=== PATIENT | female | born 1965 | race Caucasian/White ===

== ENCOUNTER 2021-09-11 16:44 | Emergency (ER) | payer BC, SELFPAY ==
--- NOTE | ~2021-09-11 | CT_ITS ---
EXAMINATION: CT brain wo con DATE: 09/11/2021 17:44 INDICATION: Fall with head injury TECHNIQUE: Computed tomography (CT) of the head was performed without intravenous contrast. Sagittal and coronal reconstructions were performed. The mA was adjusted according to patient size. Iterative reconstruction technique was employed. The dose-length product was 605.33 mGy-cm. COMPARISON: None FINDINGS: Small left frontal scalp hematoma. No fracture. No acute intracranial hemorrhage, acute infarction or abnormal extra axial fluid collection. Ventricles are normal and symmetric. No mass/mass effect. Mil d mucosal thickening the posterior left ethmoid sinus. The orbits and mastoid air cells are normal. IMPRESSION: 1. Normal brain. No fracture or acute intracranial process. Reviewed, dictated and finalized at location A.
[2021-09-11 16:45] VITALS: BP 162/100; PULSE 100; RESP 18; TEMP 36.6; O2SAT 100
--- NOTE | 2021-09-11 17:01 | ED.HEATRA ---
HPI - Head Injury General Chief complaint: Head Injury Stated complaint: fall/head lump Time Seen by Provider: 09/11/21 17:00 Source: patient Mode of arrival: ambulatory Limitations: no limitations History of Present Illness HPI Narrative: Patient is a 55-year-old with a history of hypertension, type 2 diabetes, presenting to the emergency department for evaluation of ground-level fall, head trauma. Patient reports that she tripped while taking out her trash, causing her to fall over the trash can and hit her head on the ground. Patient reports her forehead struck the ground but denies loss of consciousness patient denies vision changes, nausea, vomiting, neck pain. She does report soreness in her shoulders but denies specific shoulder or arm pain. She denies any difficulty with speech, facial droop, difficulty with ambulation. She denies dizziness. No prodromal symptoms prior to the fall such as chest pain, lightheadedness, shortness of breath, palpitation patient takes a daily aspirin. Patient states that she initiated that medication at the start of Covid, does not take that for any other formal diagnosis. Patient denies any lower back pain. Denies hip pain or extremity pain. Patient states she does have some bruising to the right lower leg. She was ambulatory following the fall. Related Data Allergies Allergy/AdvReac Type Severity Reaction Status Date / Time No Known Drug Allergies Allergy Unknown Unknown Verified 09/11/21 16:45 Review of Systems Review of Systems: CONSTITUTIONAL: Denies fever, chills, or sweats. EYES: Denies visual changes, redness, or discharge. ENT: Denies rhinorrhea, congestion, sore throat, or otalgia. CARDIOVASCULAR: Denies chest pain, palpitations, or edema. RESPIRATORY: Denies cough or dyspnea. GASTROINTESTINAL: Denies abdominal pain, nausea, vomiting, or diarrhea. GENITOURINARY: Denies dysuria or hematuria. SKIN: Denies rash or itching. MUSCULOSKELETAL: Denies back pain, joint pain, or myalgia. NEUROLOGIC: Reports dull, mild headache overlying the hematoma, denies neck pain, denies focal weakness or numbness [facility] Social History Social History (Updated 09/11/21 @ 17:19 by Sandra Haddad MD) Smoking status: Never smoker Alcohol intake: current Alcohol use details: seldom Substance use: never Living arrangements: with family Gender identity (if verbalized by the patient): Female Exam Narrative: Nursing note and vitals reviewed. CONSTITUTIONAL: The patient appears well-developed and well-nourished. No distress. HEAD: Normocephalic, frontal hematoma left forehead, nonboggy, no ecchymosis EYES: 2+ PERRL, EOMI, no gaze palsy, normal conjunctiva, anicteric EARS: External ears clear bilaterally, no hemotympanum MOUTH: OP clear, no erythema, exudates NECK: midline trachea, supple, FROM. No midline cervical spinal tenderness. CARDIOVASCULAR: Normal rate, regular rhythm, normal heart sounds and intact distal pulses. No murmurs, rubs, gallops. PULMONARY: Effort normal and breath sounds normal. No respiratory distress. The patient has no wheezes, rales, ronchi. No chest wall tenderness, crepitus or ecchymoses. ABDOMINAL: Soft. Nontender, nondistended. No palpable masses EXTREMITIES:: moving all extremities symmetrically. -RUE: No deformity. Normal ROM at shoulder, elbow, wrist, and hand. Sensation intact M/U/R. Pulse 2+. -LUE: No deformity. Normal ROM at shoulder, elbow, wrist, and hand., Sensation intact M/U/R. Pulse 2+ -RLE: No deformity. Normal ROM at hip, knee, ankle. Sensation intact distally. -LLE: No deformity. Normal ROM at hip, knee, ankle. Sensation intact distally. NEUROLOGY: The patient is alert and oriented to person, place, and time. CN II-XII. Finger to nose intact bilaterally. EOMs intact without nystagmus. No facial droop/asymmetry noted bilaterally. Grimace intact. Intact sensation in face. Hearing intact bilaterally. Shoulder shrug intact. Strength 5/5 bilateral upper
[2021-09-11 18:27] VITALS: BP 153/91; PULSE 97; RESP 18; O2SAT 97
== END 2021-09-11 18:28 | disposition home or self-care (01) ==
PROVIDERS: Emergency Provider Emergency Medicine; PCP Family Medicine
DX: S00.83XA Contusion of other part of head, initial encounter (principal); W01.0XXA Fall on same level from slipping, tripping and stumbling without subsequent striking against object, initial encounter
CPT/HCPCS: 70450; 99284

== ENCOUNTER 2022-07-18 10:29 | Inpatient (IN) | payer BC, SELFPAY ==
[2022-07-18] VITALS (22 sets, daily range): BP systolic 138–193; BP diastolic 57–86; PULSE 70–95; RESP 13–23; TEMP 36.4–37; O2SAT 95–100; BMI 42.5
--- NOTE | ~2022-07-18 | CT_ITS ---
CT Abdomen and Pelvis with contrast. History: Epigastric pain. Spiral CT of the abdomen and pelvis was performed after the administration of intravenous contrast. 1 00 cc of Omnipaque 350 was administered intravenously without complication. Dose reduction technique was used on this scan by utilizing automated exposure control and iterative reconstruction technique. The dose-length product (DLP) was 1422.78 mGy-cm. Findings: Scans through the lung bases demonstrate mild atelectatic change. The liver, spleen, pancreas, adrenals and kidneys are within normal limits. Probable gallstones prese nt. No evidence of aortic aneurysm. No lymphadenopathy is seen. There is no evidence of bowel obstruction. There is no evidence to suggest acute appendicitis or dive rticulitis. Images through the pelvis were performed. Urinary bladder unremarkable. No adnexal mass seen. No asci jermaine. No ascites is seen. Lumbar fusion across the L5-S1 disc space present, with underlying probable chronic L5 pars interarticularis defects. Impression: Cholelithiasis. Reviewed, dictated and finalized at location . OTIST OR PROSTHETIST Impression: Cholelithiasis.
--- NOTE | ~2022-07-18 | US_ITS ---
US abdomen limited DATE: 07/18/2022 14:27 INDICATION: Epigastric abdominal pain. Gallstones. TECHNIQUE: Real-time imaging of liver, pancreas, gallbladder COMPARISON: 07/18/2022 CT abdomen pelvis FINDINGS: No hepatic or pancreatic space-occupying mass lesion is evident. Normal hepatopedal portal venous flow direction. No bile duct or pancreatic duct dilatation. The common bile duct measures 3.8 mm diameter, normal. There is an approximately 2.9 cm filling defect of the neck of the gallbladder. There is prominent co arlene flow signal at the filling defect. There is some posterior shadowing. This is thought most likely to be a gallstone with some artifactual color flow signal. However, there is a remote chance that th is might be a solid vascular mass. Gallbladder carcinoma is not definitively excluded. MR abdomen todd ging is recommended for confident diagnosis. There is mild gallbladder wall thickening. Consider acute or chronic cholecystitis. IMPRESSION: Equivocal finding at the gallbladder neck. Probable large gallstone versus much less like ly solid vascular mass. Recommend MR abdomen imaging for confident differentiation Reviewed, dictated and finalized at Location A. Reviewed, dictated and finalized at location L. CTOR NON PROFIT IMPRESSION: Equivocal finding at the gallbladder neck. Probable large gallstone versus much less likely solid vascular mass. Recommend MR abdomen imaging for confident differentiation
--- NOTE | ~2022-07-18 | CT_ITS ---
EXAMINATION: CT brain wo con DATE: 07/18/2022 11:38 INDICATION: Headache and hypertension TECHNIQUE: Computed tomography (CT) of the head was performed without intravenous contrast. Sagittal and coronal reconstructions were performed. The mA was adjusted according to patient size. Iterative reconstruction technique was employed. The dose-length product was 605.33 mGy-cm. COMPARISON: head CT dated 09/11/21 FINDINGS: No acute intracranial hemorrhage, acute infarction or abnormal extra axial fluid collection. There is minimal scattered white matter hypoattenuation consistent with chronic small vessel ischemic disease . Ventricles are normal and symmetric. No mass/mass effect. Mild mucosal thickening in the posterior left ethmoid sinus. The orbits and mastoid air cells are normal. IMPRESSION: 1. No acute intracranial process. Reviewed, dictated and finalized at location A. MAKER
--- NOTE | ~2022-07-18 | MR_ITS ---
EXAMINATION: MR MRCP wo/w con/w 3D wo ind DATE: 07/19/2022 08:41 INDICATION: Epigastric pain. Gallstone at the neck of the gallbladder TECHNIQUE: Magnetic resonance imaging (MRI) of the abdomen was performed without and with 20 mL Multi armen intravenous contrast. Sequences included coronal T2-weighted SS-FSE, coronal T2-weighted FS SS- FSE, coronal T2-weighted FS FIESTA, axial T2-weighted FS FIESTA, axial T2-weighted FIESTA, sagittal T 2-weighted SS-FSE, axial T1-weighted dual-echo FSPGR, axial T2-weighted SS-FSE, axial T1-weighted LAV A, axial T2-weighted STIR FSE. Thick-slab T2-weighted FRFSE-XL images were obtained for magnetic reso nance cholangiopancreatography (MRCP). Rotating maximum intensity projection 3-D reconstructions of t he volumetric data were created by the technologist. Postcontrast sequences included a time course of axial T1-weighted LAVA. COMPARISON: CT and ultrasound dated 07/18/1932 FINDINGS: ABDOMEN MRI: Heart size is normal. Mild atelectasis at the lung bases. No pericardial or pleural effusion. Liver, pancreas, spleen, bilateral adrenal glands and kidneys are normal. A couple gallstones with absent si gnal, the larger measuring 2.5 cm at the neck of the gallbladder. There is edematous wall thickening of the gallbladder measuring up to 4 mm in thickness and there is no pericholecystic inflammatory str anding which suggests early acute cholecystitis. Visualized portion of the bowels are unremarkable. N o pathologically enlarged abdominal lymphadenopathy. Metallic magnetic field artifact corresponding t o the consultation for a combined anterior and posterior spinal fusion at L5-S1 better appreciated on prior CT. ABDOMEN MRCP: Common bile duct is normal in caliber measuring up to 5 mm in maximal diameter tapering smoothly dist ally with no evident choledocholithiasis. No dilation of the intrahepatic biliary tree or main pancre atic duct. IMPRESSION: 1. Cholelithiasis with some edematous-appearing gallbladder wall thickening but without pericholecyst ic inflammatory stranding which suggests early acute cholecystitis. 2. No choledocholithiasis or biliary ductal dilation. Reviewed, dictated and finalized at location A. H ACCOMMODATION SUPPORT WORKER IMPRESSION: 1. Cholelithiasis with some edematous-appearing gallbladder wall thickening but without pericholecystic inflammatory stranding which suggests early acute chol ecystitis. 2. No choledocholithiasis or biliary ductal dilation.
--- NOTE | ~2022-07-18 | XR_ITS ---
Clinical Indication: Lightheadedness, hypertension PA and lateral views of the chest: Comparison: 06/18/2016 Findings: The lungs are clear, without evidence of focal consolidation or pleural effusion. Cardiome diastinal silhouette is within normal limits. Bones and soft tissues are unremarkable. Impression: Normal chest. Reviewed, dictated and finalized at location . TAMP OPERATOR Impression: Normal chest.
--- NOTE | 2022-07-18 10:41 | ECG_ITS ---
Measurements Intervals [place] Rate: 67 P: 66 MN: 151 QRS: 6 QRSD: 90 T: 47 QT: 391 QTc: 416 Interpretive Statements SINUS RHYTHM VENTRICULAR PREMATURE COMPLEXES DELAYED PRECORDIAL R/S TRANSITION BORDERLINE ECG NO PREVIOUS ECG AVAILABLE FOR COMPARISON Electronically Signed On 07-18-2022 11:23:24 PLASTIC DIE MAKER APPRENTICE by Ar Sosa D.O.
--- NOTE | 2022-07-18 11:24 | ED.ABDPAIN ---
HPI - Abdominal Pain General Chief Complaint: Abdominal Pain Stated Complaint: upper abdominal pain, light headed Time Seen by Provider: 07/18/22 10:41 Source: patient Mode of arrival: ambulatory Limitations: no limitations History of Present Illness HPI narrative: This is a 56 year old female that presents to the ER with multiple complaints. Reports cold symptoms ongoing over the last week. Reports sinus pain, otalgia, mild cough. She did have a COVID test which was negative. Reports what mostly brought her in today though was abdominal pain. Reports since last night she has had aching epigastric pain. She did have roast beef and mashed potatoes last night for dinner. She does have history of GERD, has taken her omeprazole with little relief. Does report some nausea and vomiting. Reports a mild headache. Noted to be hypertensive upon arrival. She does report she took her blood pressure medication this morning. Denies fever, chest pain, shortness of breath, numbness, or weakness. Related Data Home Medications Medication Instructions Recorded Confirmed amlodipine 5 mg-benazepril 40 mg 40 cap PO DAILY 07/18/22 07/18/22 capsule aspirin 81 mg tablet 81 mg PO DAILY 07/18/22 07/18/22 cholecalciferol (vitamin D3) 25 25 mcg PO DAILY 07/18/22 07/18/22 mcg (1,000 unit) tablet glipizide 5 mg tablet, extended 10 mg PO BID 07/18/22 07/18/22 release 24 hr metformin 500 mg tablet 1,000 mg BID 07/18/22 07/18/22 metoprolol succinate 25 mg 25 mg PO DAILY 07/18/22 07/18/22 tablet,extended release 24 hr omeprazole 40 mg capsule,delayed 40 mg PO DAILY 07/18/22 07/18/22 release semaglutide 1 mg/dose (4 mg/3 mL) 1 mg subcut WEEKLY 07/18/22 07/18/22 subcutaneous pen injector (Ozempic) Allergies Allergy/AdvReac Type Severity Reaction Status Date / Time No Known Drug Allergies Allergy Unknown Unknown Verified 07/18/22 18:49 Review of Systems Review of Systems: CONSTITUTIONAL: Denies fever EYES: Denies visual changes ENT: Reports congestion, sore throat, and otalgia. CARDIOVASCULAR: Reports palpitations. Denies chest pain, or edema. RESPIRATORY: Reports cough. Denies dyspnea. GASTROINTESTINAL: Reports abdominal pain, nausea and vomiting. Denies diarrhea. GENITOURINARY: Denies dysuria NEUROLOGIC: Reports headache. Denies numbness, or weakness. All systems reviewed & are unremarkable except as noted in HPI and below PMFSH Past Medical History Medical History Hypertension Type 2 diabetes mellitus Surgical History Surgical History History of hysterectomy History of lumbar fusion L5-S1 Family History Family History Other Acute myocardial infarction Diabetes mellitus Heart disease Hypertension Social History Social History Social History: Surrogate medical decision maker: Glenolvin Finley, spouse. Code status: Full code. Smoking status: Never smoker Alcohol intake: unknown Alcohol use details: Seldom. Substance use: unknown Lack of Transportation: No Lack of Food: Never True Current Housing: I Have Housing Concerned About Future Housing: No Difficulty Paying Gas/Electric Bills: No Difficulty Paying for Meds: No Currently Unemployed: No Education: Don't Know Difficulty w/ Childcare or Family Care: No Additional living arrangements comments: Lives with family in [place]. Additional occupation/education comments: Retiring from [employer] this Sunday. Spiritual care concerns: No Exam Narrative: GENERAL: Well-appearing, well-nourished, and in no acute distress. HEAD: Normocephalic, atraumatic. EYES: PERRLA and EOMI. ENT: Nares clear, no rhinorrhea or epistaxis. Mucous membranes moist. Oropharynx without tonsillar hypertrophy exudate or other lesions
[2022-07-18 11:40] LABS: Basophils Absolute Auto 0.1 K/mm3 (0.0-0.1); Basophils Percent Auto 0.7 % (0.2-1.2); Eosinophils Absolute Auto 0.1 K/mm3 (0-0.3); Hematocrit 40.4 % (37.0-47.0); Hemoglobin 12.8 g/dL (12.0-15.0); Immature Granulocyte Absolute 0.04 K/mm3 (0.00-0.031); Immature Granulocyte Percent A 0.4 % (0-0.5); Lymphocytes Absolute Auto 2.28 K/mm3 (0.9-3.2); Lymphocytes Percent Auto 22.5 % (18.3-44.2); Mean Corpuscular HGB Conc 31.7 g/dl (32-36); Mean Corpuscular Hemoglobin 26.8 pg (26-34); Mean Corpuscular Volume 84.5 fl (80-100); Mean Platelet Volume 9.5 fl (7.4-10.4); Monocytes Absolute Auto 0.5 K/mm3 (0.1-0.6); Monocytes Percent Auto 4.8 % (2.6-8.5); Neutrophils Absolute Auto 7.1 K/mm3 (1.3-6.7); Neutrophils Percent Auto 70.6 % (45.5-73.1); Platelet Count Result 347 k/mm3 (150-375); Red Blood Count 4.78 M/mm3 (4.2-5.4); Red Cell Distribution Width 14.6 % (11.5-14.5); White Blood Count 10.1 K/mm3 (4.5-10.0)
[2022-07-18 11:50] LABS: Alanine Aminotransferase 46 U/L (6-35); Albumin Level 4.6 g/dL (3.5-5.1); Alkaline Phosphatase 113 U/L (38-126); Anion Gap 6 mmol/L (8-16); Aspartate Amino Transferase 39 U/L (14-36); Bilirubin,Total 0.4 mg/dL (0.2-1.3); Blood Urea Nitrogen 17 mg/dL (7-17); Calcium 9.9 mg/dL (8.4-10.2); Carbon Dioxide 28 mmol/L (22-30); Chloride 101 mmol/L (98-107); Estimated CRCL calculation 92 ml/min; Estimated Glomerular Filt Rate > 60; Glucose 180 mg/dL (65-110); Lipase 162 U/L (23-300); Potassium 4.2 mmol/L (3.4-5.0); Sodium 135 mmol/L (137-145)
[2022-07-18] MEDS: ONDANSETRON INJ 4 MG/2 ML VIAL IV PUSH (11:52)
[2022-07-18] MEDS: FAMOTIDINE 20 MG/2 ML VIAL IV PUSH (11:53)
--- NOTE | 2022-07-18 12:02 | PC.NURSE ---
Patient stated that she had a hysterectomy
[2022-07-18 12:06] LABS: Appearance Urine Clear (Clear); Bilirubin Urine Negative (Negative); Blood Urine Negative (Negative); Color Urine Yellow (Yellow); Glucose Urine UA Negative (Negative); Ketones Urine Negative (Negative); Leukocyte Esterase Ur Negative LEU/UL (Negative); Nitrate Urine Negative (Negative); Protein Urine 2+ mg/dL (Negative); Specific Grav Ur 1.025 (1.001-1.035); Urobilinogen Urine 0.2 mg/dL (<2.0); pH Urine 5.5 (5.0-9.0)
[2022-07-18 12:11] LABS: Mucus Urine Rare /lpf; RBC Urine 0-2 /hpf (0-2); Squamous Epithelial Cell Urine Few /hpf (Few); WBC Urine 0-3 /hpf
[2022-07-18 12:12] LABS: Add Urine Microscopic? YES
[2022-07-18 12:32] LABS: Influenza A QL RT-PCR Negative (Negative); Influenza B QL RT-PCR Negative (Negative); SARS-CoV-2 RNA PCR Negative
[2022-07-18] MEDS: METOCLOPRAMIDE HCL INJ 10 MG/2 ML VIAL IV PUSH (14:19)
[2022-07-18] MEDS: diphenhydrAMINE HCl INJ 50 MG/ML VIAL 25 MG IV PUSH (14:19)
[2022-07-18] MEDS: MORPHINE SULFATE (*CRX) 4 MG/ML INJ IV PUSH (15:13)
--- NOTE | 2022-07-18 16:15 | PM.IMHP ---
H&P: HPI History of Present Illness Date/Time: 07/18/22 16:15 Chief Complaint: Abdominal pain. Narrative: This is a very pleasant 56-year-old female with hypertension and type 2 diabetes mellitus who presented to the ED for evaluation of abdominal pain. She and her family members were recently in [place] and returned about 10 days ago. Towards the end of their trip she developed some sinus congestion, headache, and ear pain and she was seen at urgent care once they got home where she tested negative for COVID and influenza. Her symptoms have improved though she still has some sinus congestion. Sometime last week after eating [place] food she had some discomfort in epigastric region though that passed expectantly. Last evening they had roast beef and mashed potatoes for dinner and within an hour or so she once again developed epigastric pain that she describes as a severe ache. The discomfort seemed to come and go in waves of intensity but was constant. She slept poorly due to the pain. Tums provided her with no significant relief. This morning she felt nauseated and had multiple episodes of emesis after presenting to the ED. she was afebrile on arrival. Labs were significant for a WBC count of 10.1, AST 39, ALT 49, lipase 162. CT of the abdomen pelvis showed cholelithiasis and probable gallstones. Right upper quadrant ultrasound showed equivocal findings at the gallbladder neck, probable large gallstone versus much less likely solid vascular mass. She is being admitted in this setting for pain control, surgery consultation, and abdominal MRI to further delineate these findings. At the time my evaluation she is feeling a bit better after receiving IV morphine and ondansetron. She denies fever, chills, sweats, hematemesis, and diarrhea. Review of Systems Review of Systems: Twelve systems were reviewed. She continues to have sinus congestion and pressure, into the teeth. The symptoms have been ongoing for a couple of weeks and she suspects that she has a sinus infection. Glucose has been running high the last 24 hours, unusual for her. States last A1c was 6.5%. [facility] Past Medical History Medical History (Updated 07/18/22 @ 23:03 by Stacy Gonzalez PA-C) Hypertension Type 2 diabetes mellitus Surgical History Surgical History (Updated 07/18/22 @ 23:01 by Stacy Gonzalez PA-C) History of hysterectomy History of lumbar fusion L5-S1 Family History Family History Other Acute myocardial infarction Diabetes mellitus Heart disease Hypertension Social History Social History (Updated 07/18/22 @ 23:01 by Stacy Gonzalez PA-C) Social History: Surrogate medical decision maker: Glen Finley, spouse. Code status: Full code. Smoking status: Never smoker Alcohol intake: unknown Alcohol use details: Seldom. Substance use: unknown Lack of Transportation: No Lack of Food: Never True Current Housing: I Have Housing Concerned About Future Housing: No Difficulty Paying Gas/Electric Bills: No Difficulty Paying for Meds: No Currently Unemployed: No Education: Don't Know Difficulty w/ Childcare or Family Care: No Additional living arrangements comments: Lives with family in [place]. Additional occupation/education comments: Retiring from [employer] this Sunday. Spiritual care concerns: No Meds Home Medications and Allergies Home Medications Medication Instructions Recorded Confirmed Type amlodipine 5 mg-benazepril 40 mg 40 cap PO DAILY 07/18/22 07/18/22 History capsule aspirin 81 mg tablet 81 mg PO DAILY 07/18/22 07/18/22 History cholecalciferol (vitamin D3) 25 25 mcg PO DAILY 07/18/22 07/18/22 History mcg (1,000 unit) tablet glipizide 5 mg tablet, extended 10 mg PO BID 07/18/22 07/18/22 History release 24 hr metformin 500 mg tablet 1,000 mg BID 07/18/22 07/18/22 History metoprolol succinate 25 mg 25 mg PO DAILY 0
[2022-07-18 17:30] LABS: Glucose Point of Care 200 mg/dl (65-105)
[2022-07-18] MEDS: HYDROmorphone HCL INJ (*CRX) 1 MG/ML SYR 0.5 MG IV PUSH (17:33)
--- NOTE | 2022-07-18 18:40 | ADMGEN ---
This patient, Kacie Finley, was admitted to 3 [facility] Surg Room 328-01. Patient/family oriented to hospital policies and general routines including ID bracelet, bed and alarms, visiting hours, pain management, procedures, bathroom and other care routines, personal items, smoking policy, room service/diet, and visiting hours. Information on how to activate the Rapid Response Team has been discussed. Patient/Family are encouraged to report perceived risks to care and to ask questions if they do not understand what they are told or what they should do. Report from Zachary.
[2022-07-18 23:33] LABS: Glucose Point of Care 174 mg/dl (65-105)
[2022-07-18] MEDS: HYDROcodone/acetaminophen (*CRX) 5-325 MG TABLET 1 TAB PO (23:41)
[2022-07-19] VITALS (10 sets, daily range): BP systolic 120–166; BP diastolic 61–78; PULSE 68–99; RESP 15–20; TEMP 36.1–36.5; O2SAT 93–97
[2022-07-19] MEDS: AZITHROMYCIN 250 MG TABLET 500 MG PO (00:07)
[2022-07-19] MEDS: HYDROmorphone HCL INJ (*CRX) 1 MG/ML SYR 0.5 MG IV PUSH ×3 (02:59→12:08)
[2022-07-19 04:49] LABS: Glucose Point of Care 176 mg/dl (65-105)
[2022-07-19 06:24] LABS: Hematocrit 39.4 % (37.0-47.0); Hemoglobin 12.9 g/dL (12.0-15.0); Mean Corpuscular HGB Conc 32.7 g/dl (32-36); Mean Corpuscular Hemoglobin 26.8 pg (26-34); Mean Corpuscular Volume 81.9 fl (80-100); Mean Platelet Volume 9.5 fl (7.4-10.4); Platelet Count Result 363 k/mm3 (150-375); Red Blood Count 4.81 M/mm3 (4.2-5.4); Red Cell Distribution Width 14.1 % (11.5-14.5)
[2022-07-19 06:33] LABS: Alanine Aminotransferase 40 U/L (6-35); Albumin Level 4.5 g/dL (3.5-5.1); Alkaline Phosphatase 104 U/L (38-126); Anion Gap 8 mmol/L (8-16); Aspartate Amino Transferase 32 U/L (14-36); Bilirubin,Total 0.5 mg/dL (0.2-1.3); Blood Urea Nitrogen 15 mg/dL (7-17); Calcium 9.4 mg/dL (8.4-10.2); Carbon Dioxide 26 mmol/L (22-30); Chloride 99 mmol/L (98-107); Estimated CRCL calculation 94 ml/min; Estimated Glomerular Filt Rate > 60; Glucose 171 mg/dL (65-110); Lipase 58 U/L (23-300); Magnesium 1.8 mg/dL (1.6-2.3); Sodium 133 mmol/L (137-145)
[2022-07-19] MEDS: lisinopriL 20 MG TABLET 40 MG PO (08:58)
[2022-07-19] MEDS: PANTOPRAZOLE 40 MG TABLET PO (08:58)
[2022-07-19] MEDS: METOPROLOL SUCCINATE EXT REL 25 MG TABCR PO (08:58)
[2022-07-19] MEDS: amLODIPine BESYLATE 5 MG TABLET PO (08:58)
[2022-07-19] MEDS: CHOLECALCIFEROL 1,000 UNITS TABLET 1000 UNITS PO (08:58)
--- NOTE | 2022-07-19 10:30 | PM.CNGS ---
Assessment and Plan Assessment and plan (1) Acute calculous cholecystitis: Code(s): K80.00 - Calculus of gallbladder with acute cholecystitis without obstruction Status: Acute Assessment and Plan: All imaging reviewed and discussed with the patient in detail. MRCP confirmed that what was noted in the neck of the gallbladder on the ultrasound is a large gallstone, also with wall thickening of the gallbladder. She continues to have abdominal pain this morning with vomiting after sips of water with her oral pills. Given her persistent abdominal pain and large stone, it is unlikely she would be able to tolerate trying dietary modifications and going home. We would recommend proceeding with a laparoscopic cholecystectomy, possible open, under general anesthesia by Dr. Webb. Description of the procedure, risks, benefits, expected outcomes, and expected recovery were discussed with the patient and her . All questions were answered. She agrees to proceed with surgery. Will start IV fluids and add IV Zofran for her nausea. I will also keep her NPO for now until we confirm timing of surgery. We will order pre-operative antibiotics once surgery is scheduled. Dr. Webb will coordinate with the OR to try adding her onto the surgery schedule. (2) Type 2 diabetes mellitus: Code(s): E11.9 - Type 2 diabetes mellitus without complications Status: Acute Assessment and Plan: Management per Hospitalist. Hgb A1C pending this morning. (3) Hypertension: Qualifiers: Hypertension type: unspecified Qualified Code(s): I10 - Essential (primary) hypertension Code(s): I10 - Essential (primary) hypertension Status: Acute (4) Obesity, morbid, BMI 40.0-49.9: Code(s): E66.01 - Morbid (severe) obesity due to excess calories Status: Acute Assessment and Plan: Encouraged to continue low fat/diabetic diet once discharged. Patient and have requested a dietitian consult for education and examples for meal plans. Plan I have discussed the patient's case and plan of care with Dr. Webb. Thank you for allowing us to see the patient in consultation and we will continue to follow along with you. History of Present Illness Consult details Consult date: 07/19/22 Reason for consult: gallstones Requesting physician: Tiara Irene PA-C Narrative: This is a 56-year-old woman with a history of type 2 diabetes mellitus and hypertension, who presented to the emergency department yesterday with complaints of epigastric abdominal pain for 2 days. She reports an onset of epigastric abdominal pain about 2 hours after eating dinner. She had pot roast with gravy, potatoes, carrots, and ice cream with apple pie for dessert. She reports the epigastric abdominal pain radiates across her entire upper abdomen. Her pain was constant throughout the night and made it difficult to sleep. This abdominal pain continued to worsen yesterday and she decided to present to the ER for further evaluation. In the ER, she did begin vomiting. Her labs showed a white blood cell count 10,100, LFTs essentially normal, and a normal lipase. CT scan of the abdomen and pelvis showed probable cholelithiasis. She subsequently had a right upper quadrant abdominal ultrasound that showed mild gallbladder wall thickening with a probable large gallstone versus much less likely solid vascular mass at the neck of the gallbladder. Recommended MR abdominal imaging to further evaluate. Our service was consulted by the ED provider for biliary colic and abnormal gallbladder findings on imaging. An MRCP was ordered and has already been done this morning. This showed cholelithiasis with some edematous appearing gallbladder wall thickening, but no pericholecystic inflammatory stranding, no choledocholithiasis or biliary duct dilatation. There was noted to be a 2.5 cm gallstone at the neck of the gallbladder. The patient is insisting medi
[2022-07-19 11:35] LABS: Glucose Point of Care 169 mg/dl (65-105)
[2022-07-19] MEDS: SODIUM CHLORIDE 0.9% IV 1,000 ML 125 ML IV CONT (12:06)
--- NOTE | 2022-07-19 14:43 | WPDHPUPDATE1 ---
History and Physical Update Update Date/Time: 07/19/22 14:43 History and Physical has been reviewed, including an updated exam of the patient. There are NO changes in the patient's condition. Risks, benefits, and alternatives have been discussed and questions answered. Patient agrees to proceed with procedure.
--- NOTE | 2022-07-19 15:09 | WPDANESEPPF ---
Anes - Initial Pre Proc Eval Procedure: Operation Date: 07/19/22 16:30 Proposed Procedures p Laparoscopic Cholecystectomy; Possible Open - Geronimo Webb DO Date/Time: 07/19/22 15:09 Surgeon: Concetta Vang DO Pre Op Diagnosis: Biliary Colic Patient Data Age: 56 Gender: F Height: 1.63 m Weight: 112.3 kg Last Vital Signs Temp 36.1 C L 07/19/22 05:02 Pulse 72 07/19/22 08:58 Resp 16 07/19/22 05:02 BP 158/62 H 07/19/22 05:02 Pulse Ox 93 07/19/22 05:02 O2 Del Method Room Air 07/19/22 08:45 Allergies Allergy/AdvReac Type Severity Reaction Status Date / Time No Known Drug Allergies Allergy Unknown Unknown Verified 07/18/22 18:49 Home Medications Medication Instructions Recorded Confirmed Type amlodipine 5 mg-benazepril 40 mg 40 cap PO DAILY 07/18/22 07/18/22 History capsule aspirin 81 mg tablet 81 mg PO DAILY 07/18/22 07/18/22 History cholecalciferol (vitamin D3) 25 25 mcg PO DAILY 07/18/22 07/18/22 History mcg (1,000 unit) tablet glipizide 5 mg tablet, extended 10 mg PO BID 07/18/22 07/18/22 History release 24 hr metformin 500 mg tablet 1,000 mg BID 07/18/22 07/18/22 History metoprolol succinate 25 mg 25 mg PO DAILY 07/18/22 07/18/22 History tablet,extended release 24 hr omeprazole 40 mg capsule,delayed 40 mg PO DAILY 07/18/22 07/18/22 History release semaglutide 1 mg/dose (4 mg/3 mL) 1 mg subcut WEEKLY 07/18/22 07/18/22 History subcutaneous pen injector (Ozempic) Laboratory Tests 07/18/22 07/18/22 07/19/22 17:28 23:29 04:45 WBC RBC Hgb Hct MCV MCH MCHC RDW Plt Count MPV Sodium Potassium Chloride Carbon Dioxide Anion Gap BUN Creatinine Estim Creat Clear Calc Estimated GFR Glucose POC Capillary Glucose 200 mg/dl H mg/dl 174 mg/dl H mg/dl 176 mg/dl H mg/dl (65-105) (65-105) (65-105) Hemoglobin A1c Calcium Magnesium Total Bilirubin AST ALT Alkaline Phosphatase Total Protein Albumin Lipase 07/19/22 07/19/22 07/19/22 06:07 06:07 06:07 WBC 14.0 K/mm3 H K/mm3 (4.5-10.0) RBC 4.81 M/mm3 M/mm3 (4.2-5.4) Hgb 12.9 g/dL g/dL (12.0-15.0) Hct 39.4 % % (37.0-47.0) MCV 81.9 fl fl (80-100) MCH 26.8 pg pg (26-34) MCHC 32.7 g/dl g/dl (32-36) RDW 14.1 % % (11.5-14.5) Plt Count 363 k/mm3 k/mm3 (150-375) MPV 9.5 fl fl (7.4-10.4) Sodium 133 mmol/L L mmol/L (137-145) Potassium 4.0 mmol/L mmol/L (3.4-5.0) Chloride 99 mmol/L mmol/L (98-107) Carbon Dioxide 26 mmol/L mmol/L (22-30) Anion Gap 8 mmol/L mmol/L (8-16) BUN 15 mg/dL mg/dL (7-17) Creatinine 0.70 mg/dL mg/dL (0.7-1.0) Estim Creat Clear Calc 94 ml/min ml/min Estimated GFR > 60 (59 - ) Glucose 171 mg/dL H mg/dL (65-110) POC Capillary Glucose Hemoglobin A1c Pending Calcium 9.4 mg/dL mg/dL (8.4-10.2) Magnesium 1.8 mg/dL mg/dL (1.6-2.3) Total Bilirubin 0.5 mg/dL mg/dL (0.2-1.3) AST 32 U/L U/L (14-36) ALT 40 U/L H U/L (6-35) Alkaline Phosphatase 104 U/L U/L (38-126) Total Protein 8.0 g/dL g/dL (6.3-8.2) Albumin 4.5 g/dL g/dL (3.5-5.1) Lipase 58 U/L U/L (23-300) 07/19/22 11:29 WBC RBC Hgb Hct MCV MCH MCHC RDW Plt Count MPV Sodium Potassium Chloride Carbon Dioxide Anion Ga
[2022-07-19] MEDS: LACTATED RINGERS 1,000 ML 30 ML IV CONT (15:32)
[2022-07-19] MEDS: ceFAZolin 2 GM/D5W 50 ML 2 GM/50 ML BAG IVPB (15:56)
[2022-07-19] MEDS: BUPIVACAINE/EPINEPHRINE 0.5% 30 ML VIAL INFILTRATE (16:45)
--- NOTE | 2022-07-19 16:54 | W.PM.PROC2 ---
Procedure Note - Detailed Date of Procedure 07/19/22 Pre-op Diagnosis Acute calculous cholecystitis Post-op Diagnosis Same (Gallbladder hydrops) Procedure Performed Laparoscopic Cholecystectomy Surgeon Geronimo Webb, DO Anesthesia General and Local (0.5% bupivacaine) Indications This is a 56-year-old woman who presented to the emergency department with right upper quadrant pain that started 2 days ago. She has been having constant pain since it started. She denied any fevers or chills. She has never had symptoms like this the past. Her workup in the emergency department showed evidence of acute calculous cholecystitis. She was admitted for further treatment. Discussions were made with the patient about treatment options and decision was made to proceed with laparoscopic cholecystectomy, possible open. Findings Laparoscopic cholecystectomy was performed. The gallbladder had wall thickening and hyperemia. The gallbladder was tense and difficult to grasp, therefore it was aspirated with a laparoscopic aspirating needle and about 60 cc of clear mucus bile was aspirated. There were 2 large stones within the gallbladder. The cystic duct appeared to be normal size. The gallbladder was removed and sent to the lab for pathology. Description of Procedure Procedure as well as risks, benefits, and alternatives were discussed with patient. Written consent was obtained and placed in chart prior to procedure. The patient was brought back to surgical suite. Patient was placed in supine position on operating table. Time-out was done to confirm patient and procedure. Patient was then intubated by the anesthesia department. Abdomen was prepped and draped in sterile fashion using chlorhexidine prep. 0.5% bupivacaine with epinephrine was infiltrated at each site of incision. A 5 millimeter incision was made near the umbilicus, and a 5 millimeter Optiview trocar was advanced through the abdominal layers under direct visualization. Once inside the abdominal cavity, carbon dioxide was insufflated to create a pneumoperitoneum. The camera was inserted and the abdomen was inspected. No immediate abnormalities were identified. The patient was placed in reverse Trendelenburg position and rotated slightly to the left. An 11 millimeter incision was made in the subxiphoid region, and an 11 millimeter trocar was inserted under direct visualization. Two 5 millimeter incisions were made in the right upper quadrant, and two 5 millimeter trocars were inserted under direct visualization. The gallbladder was identified and grasped at the fundus and retracted superiorly. It was then grasped at the infundibulum retracted laterally. Careful dissection around the neck of the gallbladder was performed using blunt dissection with a [place] grasper and hook electrocautery. The cystic duct was identified, and a window was created behind it. The cystic artery was also identified and a window was created behind it. The critical view of safety was identified, visualizing the cystic duct running directly into the neck of the gallbladder, and the cystic artery running directly into the wall of the gallbladder. A 5 millimeter clip liquid fertilizer servicer was then used to place 2 clips proximally and 1 clip distally on both the cystic duct and cystic artery. They were then both transected using endoscopic scissors. Once safely away from the mariam hepatitis, the gallbladder was dissected free from the liver bed using hook electrocautery. Hemostasis was achieved along the way. The gallbladder was removed completely and then removed through the subxiphoid port. The liver bed was then inspected. Hemostasis appeared adequate, and our clips appeared secure. The area was gently irrigated with sterile saline. No other abnormalities were seen. The patient was flattened out in bed, and 1 final inspection was made around the abdominal cavity. The subxiphoid port was removed, and a Julian Sadia cone was used to
[2022-07-19 17:23] LABS: Glucose Point of Care 200 mg/dl (65-105)
--- NOTE | 2022-07-19 17:40 | PM.IMPN ---
Progress Note: A&P Assessment and Plan (1) Acute calculous cholecystitis: Code(s): K80.00 - Calculus of gallbladder with acute cholecystitis without obstruction Status: Acute Assessment and Plan: The patient presented to the ED for evaluation of epigastric and right upper quadrant abdominal pain and nausea and vomiting. CT shows cholelithiasis and right upper quadrant ultrasound showed what appears to be a gallstone at the gallbladder neck. Surgery consulted. MRCP showing cholelithiasis with some edematous GB. She underwent LapChol today. Continue routine post-op care. (2) Hypertension: Qualifiers: Hypertension type: unspecified Qualified Code(s): I10 - Essential (primary) hypertension Code(s): I10 - Essential (primary) hypertension Status: Acute Assessment and Plan: Patient's blood pressure was reviewed on 07/19 Blood pressure remains reasonably well controlled. Will continue current medications. (3) Type 2 diabetes mellitus: Code(s): E11.9 - Type 2 diabetes mellitus without complications Status: Acute Assessment and Plan: The patient's blood glucose was reviewed on 07/19 Glucose mild elevated Continue AccuCheks covering with sliding scale. Hypoglycemia protocol available as needed. Hold home meds (4) Sinusitis: Code(s): J32.9 - Chronic sinusitis, unspecified Status: Acute Assessment and Plan: Started on azithromycin for sinusitis but not appropriate empiric coverage. Will stop and follow. Subjective Date/time seen: 07/19/22 17:40 Interval history: 56yo female with DM and HTN here with abdominal pain. She is back form surgery this evening. Pain controlled. No CP or SOB. Feels much better overall since the surgery. Exam Narrative: Gen - NARD Chest - clear anteriorly. nml RR CV - RRR S1/S2 Abd - Soft, obese, +BS, incisions clean/dry and intact Ext - No pedal edema Psych - Nml mood and affect Skin - Warm and dry Objective Data Vital Signs Vital Signs: Vital Signs - 24 hr 07/18/22 18:14 07/18/22 18:03 07/18/22 21:38 Temperature 98.6 F 98.6 F 97.6 F Pulse Rate 85 80 Respiratory Rate 13 16 Blood Pressure 157/80 H 171/75 H Pulse Oximetry 98 95 Oxygen Delivery Oxygen Flow Rate 07/18/22 20:00 07/19/22 05:02 07/19/22 08:58 Temperature 97.0 F L Pulse Rate 72 72 Respiratory Rate 16 Blood Pressure 158/62 H Pulse Oximetry 93 Oxygen Delivery Room Air Oxygen Flow Rate 07/19/22 08:45 07/19/22 15:26 07/19/22 17:03 Temperature 97.7 F Pulse Rate 99 68 Respiratory Rate 16 15 Blood Pressure 148/78 H 120/61 Pulse Oximetry 97 97 Oxygen Delivery Room Air Room Air Simple Face Mask Oxygen Flow Rate 6 07/19/22 17:18 07/19/22 17:29 07/19/22 17:33 Temperature Pulse Rate 78 71 Respiratory Rate 16 18 Blood Pressure 145/73 H 144/69 H Pulse Oximetry 97 95 Oxygen Delivery Simple Face Mask Room Air Room Air Oxygen Flow Rate 6 Intake/Output Intake/Output: Intake & Output 07/16/22 07/17/22 07/18/22 07/19/22 23:59 23:59 23:59 23:59 Intake Total 100 50 Output Total 1500 Balance 100 -1450 Meds/Results Medications: Active Medications Generic Name Dose Route Start Last Admin Trade Name Freq PRN Reason Stop Dose Admin Acetaminophen 650 mg 07/18/22 23:07 Acetaminophen 325 Mg Tablet PO Q6H PRN Mild Pain (1-3) or Fever Hydrocodone Bitart/Acetaminophen 1 tab 07/18/22 23:07 07/18/22 23:41 Hydrocodone/Acetaminophen (*Crx) 5-325 Mg Tablet PO 1 tab Q6H PRN Administration Pain Rated 4-6 Amlodipine Besylate 5 mg 07/19/22 09:00 07/19/22 08:58 Amlodipine Besylate 5 Mg Tablet PO 5 mg QAM SUSAN Administration Azithromycin 250 mg 07/19/22 12:00 07/19/22 12:17 Azithromycin 250 Mg Tablet PO 07/22/22 09:01 Not Given DAILY SUSAN Dextrose 12.5 gm 07/18/22 17:24 Dextrose 50% 25 Gm/50 Ml Syringe IV
[2022-07-20 00:02] LABS: Glucose Point of Care 150 mg/dl (65-105)
[2022-07-20] MEDS: ACETAMINOPHEN 325 MG TABLET 650 MG PO (00:13)
[2022-07-20 05:34] LABS: Glucose Point of Care 158 mg/dl (65-105)
[2022-07-20] MEDS: HYDROcodone/acetaminophen (*CRX) 5-325 MG TABLET 1 TAB PO ×2 (05:36→11:08)
[2022-07-20 05:41] VITALS: BP 169/71; PULSE 87; RESP 16; TEMP 36.6; O2SAT 95
[2022-07-20 06:02] VITALS: BP 159/79
[2022-07-20 06:09] LABS: Hematocrit 37.9 % (37.0-47.0); Hemoglobin 12.2 g/dL (12.0-15.0); Mean Corpuscular HGB Conc 32.2 g/dl (32-36); Mean Corpuscular Hemoglobin 26.7 pg (26-34); Mean Corpuscular Volume 82.9 fl (80-100); Mean Platelet Volume 9.6 fl (7.4-10.4); Platelet Count Result 357 k/mm3 (150-375); Red Blood Count 4.57 M/mm3 (4.2-5.4); Red Cell Distribution Width 14.8 % (11.5-14.5); White Blood Count 12.4 K/mm3 (4.5-10.0)
--- NOTE | 2022-07-20 08:05 | WPDANESPN ---
Anes - Prog Note Post-Op Date/Time: 07/20/22 08:05 Vital Signs: Last Vital Signs Temp 36.6 C 07/20/22 05:41 Pulse 87 07/20/22 05:41 Resp 16 07/20/22 05:41 BP 159/79 H 07/20/22 06:02 Pulse Ox 95 07/20/22 05:41 O2 Del Method Room Air 07/19/22 20:00 O2 Flow Rate 6 07/19/22 17:18 Pain Score (VAS): 0 I/O: Intake & Output 07/19/22 07/20/22 07/20/22 23:59 07:59 15:59 Intake Total 150 Output Total 700 1900 Balance -550 -1900 Laboratory Tests 07/20/22 05:52 07/19/22 07/19/22 07/19/22 11:29 17:21 23:58 WBC RBC Hgb Hct MCV MCH MCHC RDW Plt Count MPV Sodium Potassium Chloride Carbon Dioxide Anion Gap BUN Creatinine Estim Creat Clear Calc Estimated GFR Glucose POC Capillary Glucose 169 H 200 H 150 H Calcium 07/20/22 07/20/22 07/20/22 05:27 05:52 05:52 WBC 12.4 H RBC 4.57 Hgb 12.2 Hct 37.9 MCV 82.9 MCH 26.7 MCHC 32.2 RDW 14.8 H Plt Count 357 MPV 9.6 Sodium Pending Potassium Pending Chloride Pending Carbon Dioxide Pending Anion Gap Pending BUN Pending Creatinine Pending Estim Creat Clear Calc Pending Estimated GFR Pending Glucose Pending POC Capillary Glucose 158 H Calcium Pending Patient Feedback: Patient satisfied with anesthetic care.
[2022-07-20] MEDS: ENOXAPARIN 40 MG/0.4 ML SYRINGE SUB-Q (08:57)
[2022-07-20 08:59] VITALS: PULSE 92
[2022-07-20] MEDS: lisinopriL 20 MG TABLET 40 MG PO (08:59)
[2022-07-20] MEDS: CHOLECALCIFEROL 1,000 UNITS TABLET 1000 UNITS PO (08:59)
[2022-07-20] MEDS: amLODIPine BESYLATE 5 MG TABLET PO (08:59)
[2022-07-20] MEDS: PANTOPRAZOLE 40 MG TABLET PO (08:59)
[2022-07-20] MEDS: METOPROLOL SUCCINATE EXT REL 25 MG TABCR PO (08:59)
[2022-07-20 10:47] LABS: Anion Gap 8 mmol/L (8-16); Blood Urea Nitrogen 14 mg/dL (7-17); Calcium 9.2 mg/dL (8.4-10.2); Carbon Dioxide 27 mmol/L (22-30); Chloride 103 mmol/L (98-107); Estimated CRCL calculation 83 ml/min; Estimated Glomerular Filt Rate > 60; Glucose 160 mg/dL (65-110); Sodium 138 mmol/L (137-145)
[2022-07-20 11:33] LABS: Glucose Point of Care 174 mg/dl (65-105)
--- NOTE | 2022-07-20 11:58 | PM.PNGS ---
Progress Note: A&P Assessment and Plan (1) Acute calculous cholecystitis: Code(s): K80.00 - Calculus of gallbladder with acute cholecystitis without obstruction Status: Acute Assessment and Plan: Doing well POD1. Pain well controlled. Tolerating a low fat diet. Okay from our standpoint to discharge the patient today. F/u with Dr. Webb in two weeks. Discussed d/c instructions with the patient. (2) Type 2 diabetes mellitus: Code(s): E11.9 - Type 2 diabetes mellitus without complications Status: Acute (3) Hypertension: Qualifiers: Hypertension type: unspecified Qualified Code(s): I10 - Essential (primary) hypertension Code(s): I10 - Essential (primary) hypertension Status: Acute (4) Obesity, morbid, BMI 40.0-49.9: Code(s): E66.01 - Morbid (severe) obesity due to excess calories Status: Acute Plan I have discussed the patient's case and plan of care with Dr. Webb. Subjective Subjective Date/Time Seen: 07/20/22 11:58 Post Op day: 1 (laparoscopic cholecystectomy) Patient reports: tolerating a regular diet, voiding w/o difficulty, no flatus, no bowel movement and afebrile Interval history: Patient seen this morning. Feeling well overall. Her abdominal pain from admission has resolved and now only complains of tenderness/soreness at the incisions. No nausea or vomiting and tolerating a low fat diet. Tolerating activity. Pain is well controlled with [place]. Review of Systems Review of Systems: All systems reviewed & are unremarkable except as noted in HPI and below Exam Const: General: comfortable, no acute distress and awake Orientation/consciousness: patient oriented x3 GI: Inspection: non-distended and incision (incisions dry and intact) GI Palp: Yes Soft to palpation, Yes Tenderness to palpation present (GI) (expected incisional tenderness), No Guarding due to palpation present (GI) and No Rebound tenderness present Auscultation: normal bowel sounds Neuro: General: moves all extremities and no focal motor deficits Extrem: General: no calf tenderness and no edema Psych: Mental Status: mental status grossly normal Insight: Good insight present (Psych) Objective Data Vital Signs Vital Signs: Vital Signs - 24 hr 07/19/22 15:26 07/19/22 17:03 07/19/22 17:18 Temperature 97.7 F Pulse Rate 99 68 78 Respiratory Rate 16 15 16 Blood Pressure 148/78 H 120/61 145/73 H Pulse Oximetry 97 97 97 Oxygen Delivery Room Air Simple Face Mask Simple Face Mask Oxygen Flow Rate 6 6 07/19/22 17:29 07/19/22 17:33 07/19/22 17:50 Temperature Pulse Rate 71 76 Respiratory Rate 18 18 Blood Pressure 144/69 H 148/70 H Pulse Oximetry 95 93 Oxygen Delivery Room Air Room Air Room Air Oxygen Flow Rate 07/19/22 17:58 07/19/22 18:14 07/19/22 22:18 Temperature 97.1 F L 97.2 F L Pulse Rate 71 68 91 Respiratory Rate 20 20 16 Blood Pressure 158/73 H 166/66 H 161/75 H Pulse Oximetry 94 95 97 Oxygen Delivery Room Air Oxygen Flow Rate 07/19/22 20:00 07/20/22 05:41 07/20/22 06:02 Temperature 97.8 F Pulse Rate 87 Respiratory Rate 16 Blood Pressure 169/71 H 159/79 H Pulse Oximetry 95 Oxygen Delivery Room Air Oxygen Flow Rate 07/20/22 08:59 Temperature Pulse Rate 92 Respiratory Rate Blood Pressure Pulse Oximetry Oxygen Delivery Oxygen Flow Rate Intake/Output Intake/Output: Intake & Output 07/17/22 07/18/22 07/19/22 07/20/22 23:59 23:59 23:59 23:59 Intake Total 100 150 330 Output Total 1800 1900 Balance 100 -1650 -1570 Meds/Results Medications: Active Medications Generic Name Dose Route Start Last Admin Trade Name Felipeq PRN Reason Stop Dose Admin Acetaminophen 650 mg 07/18/22 23:07 07/20/22 00:13 Acetaminophen 325 Mg Tablet PO 650 mg Q6H PRN Administration Mild Pain (1-3) or Fever Hydrocodone Bitart/Acetaminophen 1 tab 07/19/22 17:59 07/20/22 11:08
[2022-07-20 13:43] LABS: Hemoglobin A1C 6.3 % (<5.7)
[2022-07-20 14:00] VITALS: BP 123/66; PULSE 87; RESP 17; TEMP 36.1; O2SAT 97
--- NOTE | 2022-07-20 15:26 | PM.DS ---
DS: Admitting Diagnosis Discharge Date 07/20/22 Admitting Diagnosis Abdominal pain DS: Discharge Diagnosis Discharge Diagnosis (1) Acute calculous cholecystitis: Code(s): K80.00 - Calculus of gallbladder with acute cholecystitis without obstruction Status: Acute (2) Hypertension: Qualifiers: Hypertension type: unspecified Qualified Code(s): I10 - Essential (primary) hypertension Code(s): I10 - Essential (primary) hypertension Status: Acute (3) Type 2 diabetes mellitus: Code(s): E11.9 - Type 2 diabetes mellitus without complications Status: Acute (4) Sinusitis: Code(s): J32.9 - Chronic sinusitis, unspecified Status: Acute DS: Summary Hospital Course Reason for hospitalization: 56yo female with DM and HTN here with abdominal pain. Please see H&P for details Hospital Course: The patient presented to the ED for evaluation of epigastric and right upper quadrant abdominal pain with nausea and vomiting. CT shows cholelithiasis and right upper quadrant ultrasound showed what appears to be a gallstone at the gallbladder neck. Surgery was consulted. MRCP showing cholelithiasis with some edematous GB. She underwent laparoscopic cholecystectomy on 07/19/2022. She tolerated this procedure well. She still had postsurgical pain but her overall condition improved dramatically. She feels much better. She is here for discharge. Patient overall did well and was able be discharged home on 07/20/2022. Status at Discharge Cognitive/behavioral status at discharge: stable Time Spent with Patient Time attestation: Total time spent providing and/or coordinating discharge services: 34 minutes Time spent: Greater than 30 minutes Exam Narrative: Gen - NARD Chest - clear anteriorly. nml RR CV - RRR S1/S2 Abd - Soft, obese, +BS, incisions clean/dry and intact Ext - No pedal edema Psych - Nml mood and affect Skin - Warm and dry DS: Data Data Completed and Pending Pending studies at discharge: Pending at discharge 07/19/22 16:37 Surgical [PTH] Routine Labs on day of discharge: Labs from last 24 hours 07/20/22 07/20/22 07/20/22 11:30 06:16 05:52 WBC 12.4 H RBC 4.57 Hgb 12.2 Hct 37.9 MCV 82.9 MCH 26.7 MCHC 32.2 RDW 14.8 H Plt Count 357 MPV 9.6 Sodium 138 Potassium 4.0 Chloride 103 Carbon Dioxide 27 Anion Gap 8 BUN 14 Creatinine 0.80 Estim Creat Clear Calc 83 Estimated GFR > 60 Glucose 160 H POC Capillary Glucose 174 H Hemoglobin A1c Calcium 9.2 07/20/22 07/19/22 07/19/22 05:27 23:58 17:21 WBC RBC Hgb Hct MCV MCH MCHC RDW Plt Count MPV Sodium Potassium Chloride Carbon Dioxide Anion Gap BUN Creatinine Estim Creat Clear Calc Estimated GFR Glucose POC Capillary Glucose 158 H 150 H 200 H Hemoglobin A1c Calcium 07/19/22 06:07 WBC RBC Hgb Hct MCV MCH MCHC RDW Plt Count MPV Sodium Potassium Chloride Carbon Dioxide Anion Gap BUN Creatinine Estim Creat Clear Calc Estimated GFR Glucose POC Capillary Glucose Hemoglobin A1c 6.3 H Calcium Discharge Plan Discharge Attending physician on discharge: Giovanni Andrew Consulting providers: Tiara Irene ; Geronimo Richardson Discharging Clinician: Giovanni Andrew Anticipated Discharge Date/Time: 07/20/22 15:30 Patient Disposition: Home, Self-Care Activity: may shower and other - see discharge instructions Diet: diabetic and low fat Wound Care Instructions: incision open to air Discharge Instructions: DISCHARGE INSTRUCTION SHEET FOR HERNIA, GALLBLADDER AND APPENDIX SURGERIES DR. RICHARDSON 1. May shower in 24 hours, no soaking in bath x 2weeks. 2. Call office for: Wound increasingly painful or bleeding Vomiting Fever of greater than 101 degrees
== END 2022-07-20 15:55 | disposition home or self-care (01) | DRG 418 ==
LOC: ANHED 16:18 → ANH3MEDSUR 07-19 08:10
PROVIDERS: Physician Assistant; Surgery; Admitting Provider Student in an Organized Health Care Education/Training Program; Emergency Provider Emergency Medicine; PCP Family Medicine; Visit Provider Student in an Organized Health Care Education/Training Program
PROC: 0FT44ZZ Resection of Gallbladder, Percutaneous Endoscopic Approach (ICD-10-PCS; CPT 47562; principal; 2022-07-19 16:30)
DX: K80.12 Calculus of gallbladder with acute and chronic cholecystitis without obstruction (principal); K82.1 Hydrops of gallbladder; Z68.41 Body mass index [BMI] 40.0-44.9, adult; E66.01 Morbid (severe) obesity due to excess calories; I10 Essential (primary) hypertension; J32.9 Chronic sinusitis, unspecified; E11.9 Type 2 diabetes mellitus without complications; Z20.822 Contact with and (suspected) exposure to COVID-19; K21.9 Gastro-esophageal reflux disease without esophagitis; Z98.1 Arthrodesis status; Z90.710 Acquired absence of both cervix and uterus
CPT/HCPCS: 36415; 70450; 71046; 74177; 74183; 76376; 76705; 80048; 80053; 81001; 82948; 83036; 83690; 83735; 85025; 85027; 87636; 88304; 93005; 96374; 96375; 99285; A9270; A9577; J0131; J0690; J1170; J1200; J1650; J2250; J2270; J2405; J2704; J2710; J2765; J3010; J7030; J7120; Q9967